=== PATIENT | female | born 1990 | race Caucasian/White ===

== ENCOUNTER 2019-06-07 11:58 | Outpatient (RCR) | payer BC, SELFPAY | END 2019-09-03 23:59 | disposition home or self-care (01) | LOC: ANHLAB 11:58 | PROVIDERS: Visit Provider Obstetrics & Gynecology | DX: O20.0 Threatened abortion (principal); Z3A.00 Weeks of gestation of pregnancy not specified | CPT/HCPCS: 36415; 84702 ==

== ENCOUNTER 2019-06-16 01:27 | Day surgery (SDC) | payer BC, SELFPAY ==
[2019-06-12 13:23] VITALS: BMI 27.4
[2019-06-16 06:20] VITALS: BP 112/52; PULSE 77; RESP 20; TEMP 36.7; O2SAT 100
[2019-06-16] MEDS: LACTATED RINGERS 1,000 ML 30 ML IV CONT (06:35)
[2019-06-16] MEDS: IBUPROFEN IV 800 MG/200 ML 800 MG/200 ML BAG 400 MG IVPB (06:45)
--- NOTE | 2019-06-16 06:55 | WPDANESEPPF ---
Anes - Initial Pre Proc Eval Procedure: Operation Date: 06/16/19 07:30 Proposed Procedures p Suction Dilation And Curettage - Adam Xiao MD Date/Time: 06/16/19 06:55 Surgeon: Adam Xiao MD Pre Op Diagnosis: Missed Ab Patient Data Age: 28 Gender: F Height: 5 ft 2 in Weight: 68.04 kg Allergies Allergy/AdvReac Type Severity Reaction Status Date / Time Penicillins Allergy swelling, Verified 06/12/19 13:31 yeast infection amoxicillin [From Augmentin] AdvReac severe Verified 06/12/19 13:31 yeast infection clavulanic acid AdvReac severe Verified 06/12/19 13:31 [From Augmentin] yeast infection Home Medications Medication Instructions Recorded Confirmed Type No Home Medications 06/12/19 06/12/19 History Patient hx anesthesia problems: none Family hx anesthesia problems: none [facility] Past Medical History Medical History Depression Anes - Eval Final PreProcedure Day of Procedure 06/16/19 06:55 Patient weight: normal Heart: regular rate and rhythm Lungs: clear to auscultation Airway: Mallampati scale class II Neurological: alert and oriented Last oral intake: >/= 8 hours ASA classification: II Emergent: no Anesthetic plan: proceed Anesthesia type and monitoring: general GIVS and standard monitoring Informed Consent: The patient's anesthetic plan and its attendant risks and benefits were discussed with the patient/family/POA. Questions were solicited and answers provided to the satisfaction of the patient/family/POA.
--- NOTE | 2019-06-16 07:35 | WPDHPUPDATE1 ---
History and Physical Update Update Date/Time: 06/16/19 07:35 History and Physical has been reviewed, including an updated exam of the patient. There are NO changes in the patient's condition. Risks, benefits, and alternatives have been discussed and questions answered. Patient agrees to proceed with procedure.
[2019-06-16] MEDS: LIDOCAINE HCL 1% LOCAL INJ 20 ML VIAL INFILTRATE (07:53)
[2019-06-16 08:12] VITALS: BP 94/58; PULSE 83; RESP 16; O2SAT 98
--- NOTE | 2019-06-16 08:23 | PM.OP ---
Procedure Note - Brief Procedure Note - Brief Date of procedure: 06/16/19 Pre-op diagnosis: Missed Ab Post-op diagnosis: same Procedure performed: Suction D&C Description of procedure: The patient was taken the operating room. She was prepped and draped in dorsal lithotomy position after induction mac anesthesia. Speculum placed in vagina. Cervix grasped with a tenaculum. Cervix injected 3 & 9:00 a.m. with lidocaine. The was cervix dilated to 8 mm. A #8 curved suction curette was introduced into uterine cavity. Also proceed uterine cavity or curettage under VAC. A sharp care present reduced after the suction curette was removed. All the surfaces of the uterus were curettaged with a sharp curette. The suction curette was then reintroduced to remove any debris. The procedure was then terminated. The tenaculum was removed. This vacuum was removed. The patient tolerated the procedure well. She is take cover stable condition. Sponge lap needle counts were correct x2. Anesthesia: MAC Surgeon: Adam Xiao MD Estimated blood loss (mL): 50 Drains: No Packing: No Pathology: yes Complications: No immediate complications Condition: stable Disposition: PACU Findings: Normal vulva vagina and cervix, mildly enlarged uterus.
[2019-06-16 08:40] VITALS: BP 96/74; PULSE 98
[2019-06-16 08:55] VITALS: BP 91/55; PULSE 60
== END 2019-06-16 09:03 | disposition home or self-care (01) ==
PROVIDERS: Visit Provider Obstetrics & Gynecology
PROC: (CPT 59820; principal; 2019-06-16 07:30)
DX: O02.1 Missed abortion (principal); F32.9 Major depressive disorder, single episode, unspecified
CPT/HCPCS: 59820; 36415; 88305; A9270; J1741; J2250; J2704; J3010; J7120

== ENCOUNTER 2021-03-11 09:19 | Observation (INO) | payer BC, SELFPAY ==
[2021-03-11 09:40] VITALS: BP 119/62; PULSE 87
[2021-03-11 09:45] VITALS: BP 116/63; PULSE 100
[2021-03-11 09:56] VITALS: BMI 35.6
--- NOTE | 2021-03-11 09:56 | OBADM ---
This patient, Sulma Simon, admitted to the OB room OB Post 115 for observation. Patient/family oriented to hospital policies and general routines including ID bracelet, bed and alarms, visiting hours, pain management, procedures, bathroom and other care routines, personal items, smoking policy, room service/diet, and visiting hours. Patient/Family are encouraged to report perceived risks to care and to ask questions if they do not understand what they are told or what they should do.
[2021-03-11 10:01] VITALS: BP 105/58; PULSE 80
[2021-03-11 10:15] VITALS: BP 113/60; PULSE 82
--- NOTE | 2021-03-30 18:51 | PM.OBTRLD ---
OB - Triage/Final Diagnosis Visit Information Comments/Additional reasons for admission: I have assessed the risk for this patient, Sulma Simon, and determined that she would benefit from observation care. Final Diagnosis (1) Flank pain, acute: Code(s): R10.9 - Unspecified abdominal pain Status: Acute
== END 2021-03-11 10:33 | disposition home or self-care (01) ==
PROVIDERS: Admitting Provider Obstetrics & Gynecology; Visit Provider Obstetrics & Gynecology
DX: O26.893 Other specified pregnancy related conditions, third trimester (principal); R10.9 Unspecified abdominal pain; Z3A.30 30 weeks gestation of pregnancy
CPT/HCPCS: G0378; G0379

== ENCOUNTER 2021-05-11 13:32 | Outpatient (CLI) | payer BC, SELFPAY ==
[2021-05-11 14:00] LABS: Hematocrit 37.4 % (37.0-47.0); Hemoglobin 13.1 g/dL (12.0-15.0); Mean Corpuscular Hemoglobin 33.9 pg (26-34); Mean Corpuscular Volume 96.9 fl (80-100); Mean Platelet Volume 10.6 fl (7.4-10.4); Platelet Count Result 186 k/mm3 (150-375); Red Blood Count 3.86 M/mm3 (4.2-5.4); White Blood Count 10.2 K/mm3 (4.5-10.0)
[2021-05-12 11:22] LABS: Rapid Plasma Reagin Non-Reactive (NonReactive)
== END 2021-05-11 13:33 | disposition home or self-care (01) ==
LOC: ANHOBOP 13:33
PROVIDERS: Visit Provider Obstetrics & Gynecology
DX: Z01.818 Encounter for other preprocedural examination (principal)
CPT/HCPCS: 36415; 85027; 86592; 86850; 86900; 86901

== ENCOUNTER 2021-05-12 06:55 | Inpatient (IN) | payer BC, SELFPAY ==
[2021-05-12] VITALS (38 sets, daily range): BP systolic 88–127; BP diastolic 36–87; PULSE 53–106; RESP 18–20; TEMP 36.3–37.2; O2SAT 93–100; BMI 37.2
--- OUTSIDE RECORDS SUMMARY | 2021-05-12 07:03 | XMS_ITS | Encounter Summary ---
:1990 Author Reason for Visit OB visit Assessment and Plan 1. Routine care 2. Shoulder dystocia - delivered 3. Sterilization requested Discussion Note: None recorded.Patient educational handouts: No information available. Plan of Care Reminders Provider Appointments Surg Post 05/19/2021 Merle Mcclure herese Op 10:00AM MD [facility] Lab None ? ? recorded. Referral None ? ? recorded. Procedures None ? ? recorded. Surgeries None ? ? recorded. Imaging None ? ? recorded. Medications Name Start Date ? ? albuterol sulfate HFA 90 mcg/actuation aerosol inhaler ? ? Slow Release Iron ? Medications Administered None recorded. Vitals Height Weight BMI Blood Pressure 5 ft 2 in 195 lbs 35.7 kg/m2 110/63 mm[Hg] Results Lab Results None recorded. Allergies Code Code System Name Reaction Severity Onset NKDA ? ? ? Problems Name Status Onset Date Source ? Active 10/31/2020 ? 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 Shoulder Dystocia - Delivered Active ? ?
--- OUTSIDE RECORDS SUMMARY | 2021-05-12 07:03 | XMS_ITS | Encounter Summary ---
:1990 Author Reason for Visit OB visit Assessment and Plan 1. Routine care 2. Group B Streptococcus carrier Discussion Note: None recorded.Patient educational handouts: No [...] BMI Blood Pressure 5 ft 2 in 197 lbs 36 kg/m2 114/68 mm[Hg] Results Lab Results None recorded. Allergies Code Code System Name Reaction Severity Onset NKDA ? ? ? Problems Name Status Onset Date Source ? Active 10/31/2020 ? 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 Shoulder Dystocia - Delivered Active ? ? Sterilization Requested Active ? ?
--- OUTSIDE RECORDS SUMMARY | 2021-05-12 07:03 | XMS_ITS | Encounter Summary ---
:1990 Author Reason for Visit OB visit Assessment and Plan Assessment Note Patient is ___weeks . Discu ssed plan. 1. Routine care Discussion Note: None recorded.Patient educational handouts: No information available. Plan of Care Reminders Provider Appointments Surg Post 05/19/2021 Merle anthony Op 10:00AM MD [facility] Lab None ? ? recorded. Referral None ? ? recorded. Procedures None ? ? recorded. Surgeries None ? ? recorded. Imaging None ? ? recorded. Medications Name Start Date ? ? albuterol sulfate HFA 90 mcg/actuation aerosol inhaler ? ? Slow Release Iron ? Medications Administered None recorded. Vitals Height Weight BMI Blood Pressure 5 ft 2 in 189 lbs 34.6 kg/m2 128/73 mm[Hg] Results Lab Results None recorded. Allergies Code Code System Name Reaction Severity Onset NKDA ? ? ? Problems Name Status Onset Date Source ? Active 10/31/2020 ? 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 Shoulder Dystocia - Delivered Active ?
--- OUTSIDE RECORDS SUMMARY | 2021-05-12 07:03 | XMS_ITS | Encounter Summary ---
:1990 Author Reason for Visit OB visit and pre-op Assessment and Plan 1. Shoulder dystocia - delivered 2. Sterilization requested Discussion Note: None recorded.Patient educational [...] BMI Blood Pressure 5 ft 2 in 196 lbs 35.8 kg/m2 118/76 mm[Hg] Results Lab Results None recorded. Allergies Code Code System Name Reaction Severity Onset NKDA ? ? ? Problems Name Status Onset Date Source ? Active 10/31/2020 ? 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 Shoulder Dystocia - Delivered Active ? ? Steriliz
--- OUTSIDE RECORDS SUMMARY | 2021-05-12 07:03 | XMS_ITS ---
:1990 Author Care Team Providers Name Role Phone Merle Thakur Primary Care Provider Unavailable Allergies Code Code System Name Reaction Severity Status Onset NKDA ? Medications Name Status Start Date Stop Date ? ? albuterol sulfate HFA 90 Active ? Not celso ilable mcg/actuation aerosol inhaler amoxicillin 875 mg tablet Completed ? 2020 amoxicillin 875 mg-potassium clavulanate 125 mg tablet Completed ? 03/06/2021 TAKE 1 TABLET BY ORAL ROUTE EVERY 12 HOURS FOR 5 DAYS Flonase Allergy Relief Completed ? fluconazole 150 mg tablet Completed ? 2020 Junel Fe 24 1 mg-20 mcg (24)/75 mg (4) tablet Completed 06/29/2020 TAKE 1 TABLET BY MOUTH EVERY DAY Metrogel Vaginal 0.75 % Completed 04/13/2017 04/06/20 18 insert 1 applicatorful by vaginal route every day at bedtime f or 5 nights Ortho-Cyclen (28) 0.25 mg-35 mcg tablet Completed 04/20/20 16 09/12/2016 take 1 tablet by oral route every day penicillin V potassium 500 mg tablet Completed ? 03/06/2021 TAKE 1 TABLET BY MOUTH TWICE A DAY FOR 10 DAYS prednisone 20 mg tablet Completed ? 03/06/20 21 TAKE 3 TABLETS BY MOUTH ONCE DAILY FOR 5 DAYS Active ? Not available Slow Release Iron Active ? Not available triamcinolone acetonide 0.1 % topical cream Completed ? 03/06/2021 APPLY TO AFFECTED AREA TWICE A DAY Valtrex 1 gram tablet Completed ? 09/18/2014 take 1 tablet by oral route every day Zoloft 50 mg tablet Completed 03/15/2013 04/26/2014
--- OUTSIDE RECORDS SUMMARY | 2021-05-12 07:03 | XMS_ITS | Encounter Summary ---
:1990 Author Reason for Visit OB visit Assessment and Plan 1. Shoulder dystocia - delivered ? section (SURG) 2. Routine care Discussion Note: None recorded.Patient educational handouts: No information available. Plan of Care Reminders Provider Appointments Surg Post Op Am y C[place] 05/19/2021 MD [facility] 10:00AM Lab None ? ? recorded. Referral None ? ? recorded. Procedures None ? ? recorded. Surgeries [facility] (SURG) 05/12/2021 [facility] Imaging None ? ? recorded. Medications Name Start Date ? ? albuterol sulfate HFA 90 mcg/actuation aerosol inhaler ? ? Slow Release Iron ? Medications Administered None recorded. Vitals Height Weight BMI Blood Pressure 5 ft 2 in 190 lbs 34.8 kg/m2 109/67 mm[Hg] Results Lab Results None recorded. Allergies Code Code System Name Reaction Severity Onset NKDA ? ? ? Problems Name Status Onset Date Source ? Active 10/31/2020 ?
--- OUTSIDE RECORDS SUMMARY | 2021-05-12 07:03 | XMS_ITS | Encounter Summary ---
[...] ft 2 in 195 lbs 35.7 kg/m2 113/73 mm[Hg] Results Lab Results None recorded. Allergies Code Code System Name Reaction Severity Onset NKDA ? ? ? Problems Name Status Onset Date Source ? Active 10/31/2020 ? 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 Shoulder Dystocia - Delivered Active ? ? Sterilization Requested Active ? ?
--- OUTSIDE RECORDS SUMMARY | 2021-05-12 07:03 | XMS_ITS | Encounter Summary ---
:1990 Author Reason for Visit OB visit 28WKS / GLUCOSE TODAY Assessment and Plan Assessment Note Patient is [...] BMI Blood Pressure 5 ft 2 in 185 lbs 33.8 kg/m2 113/66 mm[Hg] Results Lab Results None recorded. Allergies Code Code System Name Reaction Severity Onset NKDA ? ? ? Problems Name Status Onset Date Source ? Active 10/31/2020 ? 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
--- OUTSIDE RECORDS SUMMARY | 2021-05-12 07:03 | XMS_ITS | Encounter Summary ---
:1990 Author Reason for Visit None recorded. Assessment and Plan 1. Medical examination for suspe cted condition ? US, obstetric, follow-up Discussion Note: None recorded.Patient educational handouts: No information available. Plan of Care Reminders Provider Appointments Surg Post 05/19/2021 Merle Thakur, [place] 10:00AM Lab None ? ? recorded. Referral None ? ? recorded. Procedures None ? ? recorded. Surgeries None ? ? recorded. Imaging US, 03/19/2021 [place] [facility], Follow-up Medications Name Start Date ? ? albuterol sulfate HFA 90 mcg/actuation aerosol inhaler ? ? Slow Release Iron ? Medications Administered None recorded. Vitals None recorded. Results Lab Results None recorded. Allergies Code Code System Name Reaction Severity Onset NKDA ? ? ? Problems Name Status Onset Date Source ? Active 10/31/2020 ? 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 Shoulder Dystocia - Delivered Active ? ? Sterilization Requested Active ? ? Procedures Date
--- OUTSIDE RECORDS SUMMARY | 2021-05-12 07:03 | XMS_ITS | Encounter Summary ---
:1990 Author Reason for Visit None recorded. Assessment and Plan 1. Large for gestation age fetus ? US, obstetric, follow-up Discussion Note: None recorded.Patient educational handouts: No information available. Plan of Care Reminders Provider Appointments Surg Post 05/19/2021 Merle Thakur, [place] 10:00AM Lab None ? ? recorded. Referral None ? ? recorded. Procedures None ? ? recorded. Surgeries None ? ? recorded. Imaging US, 04/16/2021 [place] [facility], Follow-up Medications Name Start Date ? [...] Sterilization Requested Active ? ? Procedures Date Name
--- NOTE | 2021-05-12 07:20 | LDADM ---
This patient, Sulma Simon, was admitted to Labor/Delivery/Recovery 119 on 05/12/21 at 06:55. Plans for labor, pain management and were discussed with patient. Patient/family oriented to hospital policies and general routines including ID bracelet, bed and alarms, visiting hours, pain management, procedures, bathroom and other care routines, personal items, smoking policy, room service/diet and guest tray routines, infant security routines, and visiting hours. Patient/Family are encouraged to report perceived risks to care and to ask questions if they do not understand what they are told or what they should do. See OBIX for further documentation.
[2021-05-12] MEDS: LACTATED RINGERS 1,000 ML 125 ML IV CONT (07:45)
--- NOTE | 2021-05-12 07:51 | WPDANESEPPF ---
Anes - Initial Pre Proc Eval Procedure: Operation Date: 05/12/21 09:00 Proposed Procedures p Section with Bilateral Salpingectomy - Merle Thakur MD Date/Time: 05/12/21 07:51 Surgeon: Merle Thakur MD Pre Op Diagnosis: Section,sterilization Patient Data Age: 30 Gender: F Height: 1.55 m Weight: 89.3 kg Last Vital Signs Temp 36.9 C 05/12/21 07:47 Pulse 84 05/12/21 07:48 Resp 18 05/12/21 07:47 BP 105/64 05/12/21 07:48 Allergies Allergy/AdvReac Type Severity Reaction Status Date / Time acetaminophen [From Tylenol] Allergy Intermediate Blister Verified 05/12/21 07:48 amoxicillin [From Augmentin] AdvReac severe Verified 04/16/21 15:00 yeast infection clavulanic acid AdvReac severe Verified 04/16/21 15:00 [From Augmentin] yeast infection Home Medications Medication Instructions Recorded Confirmed Type PNV cmb#95-ferrous fumarate-FA 1 tablet PO DAILY 04/16/21 04/16/21 History [] ferrous sulfate [Iron (ferrous 325 mg PO BID 04/16/21 04/16/21 History sulfate)] Patient hx anesthesia problems: none Family hx anesthesia problems: none Results Review: All pre-operative results and documents have been reviewed as part of the pre-operative evaluation. FORMERLY [facility] Past Medical History Medical History (Updated 05/12/21 @ 07:52 by Varghese Bain MD) Depression Obesity Surgical History Surgical History (Updated 05/12/21 @ 07:52 by Varghese Bain MD) History of D&C Family History Family History (Updated 04/16/21 @ 14:33 by Anne Tobar RN) Father Hypertension High cholesterol Mother Hypertension Cerebrovascular accident High cholesterol Social History Social History Smoking packs per day: 0.5 Smoking cigarettes per day: 10.0 Years smoked: 15 Smoking pack-years: 7.50 Smoking status: Current every day smoker Tobacco type: cigarettes Second hand tobacco smoke exposure: No Substance use: never Spiritual care concerns: No Anes - Eval Final PreProcedure Day of Procedure 05/12/21 07:51 Patient weight: obese Heart: regular rate and rhythm Lungs: clear to auscultation Airway: Mallampati scale class II Neurological: alert and oriented Last oral intake: >/= 8 hours ASA classification: II Emergent: no Anesthetic plan: proceed Anesthesia type and monitoring: regional spinal and standard monitoring Results Review: All pre-operative results and documents have been reviewed as part of the pre-operative evaluation. Informed Consent: The patient's anesthetic plan and its attendant risks and benefits were discussed with the patient/family/POA. Questions were solicited and answers provided to the satisfaction of the patient/family/POA.
--- NOTE | 2021-05-12 08:48 | PM.IMHP ---
H&P: HPI History of Present Illness Date/Time: 05/12/21 08:48 Chief Complaint: primary CS Narrative: Sulma is a at 39.4 for primary CS for history of shoulder dystocia last . This growth 71% but AC 96%. Had previa that resolved. GBS pos. Also wants salpingectomy for sterilization. Review of Systems Review of Systems: All systems reviewed & are unremarkable except as noted in HPI and below PMFSH Past Medical History Medical History (Updated 05/12/21 @ 08:50 by Merle Thakur MD) Depression Obesity Surgical History Surgical History (Updated 05/12/21 @ 07:52 by Varghese Bain MD) History of D&C Family History Family History (Updated 04/16/21 @ 14:33 by Anne Tobar RN) Father Hypertension High cholesterol Mother Hypertension Cerebrovascular accident High cholesterol Social History Social History Smoking packs per day: 0.5 Smoking cigarettes per day: 10.0 Years smoked: 15 Smoking pack-years: 7.50 Smoking status: Current every day smoker Tobacco type: cigarettes Second hand tobacco smoke exposure: No Substance use: never Spiritual care concerns: No Meds Home Medications and Allergies Home Medications Medication Instructions Recorded Confirmed Type PNV cmb#95-ferrous fumarate-FA 1 tablet PO DAILY 04/16/21 04/16/21 History [] ferrous sulfate [Iron (ferrous 325 mg PO BID 04/16/21 04/16/21 History sulfate)] Allergies Allergy/AdvReac Type Severity Reaction Status Date / Time acetaminophen [From Tylenol] Allergy Intermediate Blister Verified 05/12/21 07:48 amoxicillin [From Augmentin] AdvReac severe Verified 04/16/21 15:00 yeast infection clavulanic acid AdvReac severe Verified 04/16/21 15:00 [From Augmentin] yeast infection Vital Signs Vital Signs - 24 hr 05/12/21 07:47 05/12/21 07:48 05/12/21 08:00 Temperature 98.4 F Pulse Rate 84 86 Respiratory Rate 18 Blood Pressure 105/64 113/59 L 05/12/21 08:15 05/12/21 08:30 05/12/21 08:45 Temperature Pulse Rate 79 75 63 Respiratory Rate Blood Pressure 104/66 104/66 118/87 Exam Const: General: no acute distress Resp: Effort & Inspection: normal respiratory effort Auscultation: clear to auscultation bilaterally Cardio: Rate: regular rate Rhythm: regular rhythm GI: GI Palp: Yes Soft to palpation Extrem: General: normal to inspection Assessment and Plan Assessment and plan (1) History of shoulder dystocia in prior , currently : Code(s): O09.299 - Supervision of with other poor reproductive or obstetric history, unspecified trimester Status: Acute (2) Request for sterilization: Code(s): Z30.2 - Encounter for sterilization Status: Acute Additional Plan Plan primary CS due to history of shoulder dystocia Discussed RBA, pt consented, all questions answered. desires bilateral salpingectomy for sterilization, is 100% certain. will proceed.
--- NOTE | 2021-05-12 08:51 | WPDHPUPDATE1 ---
History and Physical Update Update Date/Time: 05/12/21 08:51 History and Physical has been reviewed, including an updated exam of the patient. There are NO changes in the patient's condition. Risks, benefits, and alternatives have been discussed and questions answered. Patient agrees to proceed with procedure.
--- NOTE | 2021-05-12 10:09 | PM.OBPRVD ---
OB - Delivery Note Procedure Delivery date: 05/12/21 Procedure: Procedures Operation Date: 05/12/21 09:00 <No data on this case meets the specified criteria> Primary low transverse section and bilateral salpingectomy Route of delivery: Specimen: Yes (placenta) Quantitative Blood Loss (ml): 495 Anesthesia type: Spinal Disposition: floor Complications: none Narrative: The patient was taken to the OR and received spinal anesthesia. She was placed in dorsal supine position with left lateral tilt. SCDs and garcia were placed. She was prepped and draped in the normal sterile fashion. A Pfannensteil skin incision was made and carried through to the underlying layer of fascia. The fascia was incised in the midline and then extended laterally using Sotelo scissors. The muscles were in the midline and the peritoneum was entered bluntly. The peritoneal incision was extended inferiorly and superiorly with care to avoid the bladder. The bladder blade was then inserted, the vesicouterine peritoneum was grasped, incised with Metzenbaum scissors, and a bladder flap created. The bladder blade was reinserted. A low transverse uterine incision was made with a scalpel and extended bluntly. AROM was performed and fluid was noted to be clear. The head was delivered, followed by the remainder of the baby. The baby's oropharynx was suctioned. After 30 seconds, the cord was clamped and cut and the was handed off. Cord blood was obtained and the placenta was then removed manually. The uterus was exteriorized. A moist lap sponge was used to curette the endometrium. The uterine incision was then closed with two layers of 0-Vicryl in a running, locking fashion. Good hemostasis was noted. I then turned attention to the tubes. Using the Ligasure, the right tube was removed by sequentially clamping, cauterizing, and cutting the tube free from the cornua and the broad ligament. Similarly, the left tube was removed. The posterior cul de sac was irrigated with normal saline and cleared of all clot and debris. The uterus was returned to the abdomen. Both lateral gutters were then irrigated. The rectus muscles were inspected and found to be hemostatic. The fascia was reapproximated using 0-Vicryl in running fashion. The subcutaneous tissue was irrigated with normal saline and made hemostatic with Bovie electrocautery. The skin was then closed with 4-0 vicryl. Steri strips and a bandage were applied. The uterus was evacuated. The patient tolerated the procedure very well. All counts were correct. She was taken to the recovery room in good condition. Baby Date of : 05/12/21 Time of : 09:30 Weeks of gestation at delivery: 39 gender: Female Weight (pounds): 7 Weight (ounces): 3 presentation: vertex Placenta delivery description: Manual Removal cord vessel description: 3 Vessels, Nuchal Cord (x2) and Delayed Cord Clamping score one minute: 8 score five minutes: 9
[2021-05-12] MEDS: KETOROLAC 30 MG/ML VIAL (*BKC) IV PUSH ×3 (10:15→23:42)
[2021-05-12] MEDS: OXYTOCIN 30 UNITS/NS 500 ML 30 UNITS/500 ML BAG 125 UNITS IV CONT (12:20)
--- NOTE | 2021-05-12 12:42 | PC.NURSE ---
Patient transferred to post room # 281 per stretcher. Support person present. Oriented to unit, room, information board, rooming in, admission packet and security measures. Patient verbalizes understanding.
--- NOTE | 2021-05-12 13:15 | PC.NURSE ---
Mother to 2nd floor, RN called out to assist mother with feeding. Mother reports eagerly fed first feeding without difficulties or discomfort. Mother reports 1st child now 8 yrs old for a few weeks is able to freely thrust tongue past gum ridge and flange both lips. Skin is intact on both nipples, no redness and bruising noted. Reviewed infant feeding cues, frequencies, duration of feedings, feeding elimination flow sheet, and signs of adequate intake. Demonstrated stimulation techniques to wake for feeding. Assisted with to breast. Reviewed positioning/alignment in cross cradle, holding breast in ?U? hold and guided asymmetrical latch on. Reviewed rational for each. Infant able to latch correctly within a few attempts. Infant nursed eagerly with steady draws and occasional swallowing noted, some pausing noted. Reviewed signs of a correct latch, effective nursing and suck swallow ratio. Suggested mother stimulate while feeding to increase stimulation for milk supply, for increased intake and to assist with maintaining deep latch. Infant would slip to shallow latch causing tenderness. Demonstrated how to adjust latch more deeply while feeding as needed. Mother reports she can feel the difference in latch with no tenderness. Nipple care reviewed of lanolin after feedings, warm compresses as needed. Instructed mother to call out for RN assistance if she is unable to latch for feeding or she has discomfort with nursing. Instructed feeding should be initiated three hours from start of last feeding or if feeding cues are noted before. Mother voiced understanding of information shared.
[2021-05-12] MEDS: oxyCODONE HCL (*CRX) 5 MG TAB IR PO (13:44)
[2021-05-12] MEDS: diphenhydrAMINE HCl INJ 50 MG/ML VIAL 25 MG IV PUSH (14:34)
[2021-05-12] MEDS: DEXTROSE 5%/0.45% SOD CHL 1,000 ML 125 ML IV CONT (17:08)
[2021-05-12] MEDS: DOCUSATE SODIUM 100 MG CAPSULE PO (17:10)
[2021-05-12] MEDS: SIMETHICONE 80 MG TAB.CHEW PO (17:10)
[2021-05-13 04:45] VITALS: BP 109/54; PULSE 74; RESP 18; TEMP 37; O2SAT 97
[2021-05-13 05:04] LABS: Basophils Percent Auto 0.2 % (0.2-1.2); Hematocrit 32.5 % (37.0-47.0); Hemoglobin 11.3 g/dL (12.0-15.0); Immature Granulocyte Absolute 0.08 K/mm3 (0.00-0.031); Immature Granulocyte Percent A 0.6 % (0-0.5); Lymphocytes Absolute Auto 2.03 K/mm3 (0.9-3.2); Lymphocytes Percent Auto 16.2 % (18.3-44.2); Mean Corpuscular HGB Conc 34.8 g/dl (32-36); Mean Corpuscular Volume 97.9 fl (80-100); Mean Platelet Volume 10.9 fl (7.4-10.4); Monocytes Absolute Auto 0.6 K/mm3 (0.1-0.6); Monocytes Percent Auto 4.7 % (2.6-8.5); Neutrophils Absolute Auto 9.8 K/mm3 (1.3-6.7); Neutrophils Percent Auto 78.3 % (45.5-73.1); Platelet Count Result 157 k/mm3 (150-375); Red Blood Count 3.32 M/mm3 (4.2-5.4); White Blood Count 12.5 K/mm3 (4.5-10.0)
--- NOTE | 2021-05-13 07:19 | P.PNOB_ITS ---
OB - PN: Subj Subjective Date/time seen: 05/13/21 07:19 Patient comments: no complaints and pain well controlled baby status: nursing well [place] feeding status: exclusively breast feeding Narrative: POD 1 from primary CS. Doing well. Normal lochia. Eating, ambulating, garcia out. OB - PN: Obj Data Labs CBC & Chem 7: 05/13/21 04:41 Labs: Laboratory Results - last 24 hr 05/13/21 04:41 WBC 12.5 H RBC 3.32 L Hgb 11.3 L Hct 32.5 L MCV 97.9 MCH 34.0 MCHC 34.8 RDW 13.0 Plt Count 157 MPV 10.9 H Immature Gran % (Auto) 0.6 H Neut % (Auto) 78.3 H Lymph % (Auto) 16.2 L Haakon % (Auto) 4.7 Eos % (Auto) 0.0 Baso % (Auto) 0.2 Lymph # (Auto) 2.03 Haakon # (Auto) 0.6 Eos # (Auto) 0.0 Baso # (Auto) 0.0 Abs Immat Gran (auto) 0.08 H Absolute Neuts (auto) 9.8 H Absolute Nucleated RBC 0.0 Nucleated RBC % 0.0 OB - PN A/P Assessment and Plan (1) delivery delivered: Code(s): O82 - Encounter for delivery without indication Status: Acute Plan day: 1 Plan: routine care Time Spent With Patient Time: Total time spent is greater than 50% in coordination of care (as documented) at patient's floor/unit and/or counseling patient: Exam Narrative: NAD abdomen soft, appropriately tender, incision bandaged Extremities nontender with 1+ edema
--- NOTE | 2021-05-13 07:45 | PC.NURSE ---
Consult with pt., mother reports is eagerly feeding with slight tenderness to left nipple from a blister. Mother reports a blister began last evening, mother had assist during the night and feels she was not positioning infant correctly and now feels less discomfort.. Reviewed infant feeding cues, frequencies, duration of feedings, feeding elimination flow sheet, and signs of adequate intake. Demonstrated stimulation techniques to wake infant for feeding. Reviewed signs of a correct latch, effective nursing and suck swallow ratio. Nipple care reviewed of lanolin after feedings and warm compresses as needed. Requested mother to call out for RN/LC assistance next feeding to assess latch due reported nipple tenderness. Instructed feeding should be initiated three hours from start of last feeding or if feeding cues are noted before. Mother voiced understanding of information shared.
[2021-05-13 08:00] VITALS: BP 109/56; PULSE 64; RESP 18; TEMP 36.5; O2SAT 98
[2021-05-13] MEDS: oxyCODONE HCL (*CRX) 5 MG TAB IR PO ×3 (08:10→20:02)
[2021-05-13] MEDS: DOCUSATE SODIUM 100 MG CAPSULE PO (08:10)
[2021-05-13] MEDS: MULTIVIT/MIN/PREN/FOL AC/IRON TABLET 1 TAB PO (08:10)
[2021-05-13] MEDS: IBUPROFEN 600 MG TABLET PO ×3 (08:10→20:02)
--- NOTE | 2021-05-13 12:45 | WPDANLDPN2 ---
Anes-Prog Note L&D Date/Time: 05/13/21 12:45 Comfortable throughout: section Neuraxial method: spinal Epidural/Spinal procedure site: clean & non-tender Neuro status: Neuro function grossly intact. Cardiovascular status: normal Respiratory status: normal Airway patency: baseline Mental status: baseline Post-Op hydration status: normal Vital Signs: Last Vital Signs Temp 97.7 F 05/13/21 08:00 Pulse 64 05/13/21 08:00 Resp 18 05/13/21 08:00 BP 109/56 L 05/13/21 08:00 Pulse Ox 98 05/13/21 08:00 Pain score (VAS): 0 I/O: Intake & Output 05/12/21 05/13/21 05/13/21 23:59 07:59 15:59 Intake Total 2100 800 Output Total 1150 1650 Balance 950 -850 Post-procedural complaints: pruritis severe, treatment refractory Patient feedback: Patient satisfied with anesthetic care.
--- NOTE | 2021-05-13 12:46 | WPDANLDNPN2 ---
Anes-Prog Note L&D-Neuraxial Date/Time: 05/13/21 12:46 Neuraxial medications: intrathecal PF morphine Opiod-related complaints: pruritis severe, treatment refractory Patient feedback: Patient satisfied with post-operative pain management.
--- NOTE | 2021-05-13 14:45 | PC.NURSE ---
Consult with pt., mother reports she just completed a feeding and did not call out. Mother reports less tenderness with feeding.
[2021-05-13 20:00] VITALS: BP 97/67; PULSE 68; RESP 18; TEMP 36.2; O2SAT 99
[2021-05-14] MEDS: oxyCODONE HCL (*CRX) 5 MG TAB IR PO ×4 (01:18→19:40)
[2021-05-14] MEDS: IBUPROFEN 600 MG TABLET PO ×4 (02:05→19:39)
--- NOTE | 2021-05-14 07:34 | P.PNOB_ITS ---
OB - PN: Subj Subjective Date/time seen: 05/14/21 07:34 Patient comments: incisional pain, tolerating diet and flatus present [place] baby status: doing well OB - PN: Obj Data Labs CBC & Chem 7: 05/13/21 04:41 OB - PN A/P Assessment and Plan (1) delivery delivered: Code(s): O82 - Encounter for delivery without indication Status: Acute (2) Request for sterilization: Code(s): Z30.2 - Encounter for sterilization Status: Acute (3) History of shoulder dystocia in prior , currently : Code(s): O09.299 - Supervision of with other poor reproductive or obstetric history, unspecified trimester Status: Acute Plan day: 2 Plan: routine care Time Spent With Patient Time: Total time spent is greater than 50% in coordination of care (as docu mented) at patient's floor/unit and/or counseling patient: Exam Narrative: NAD abdomen soft, appropriately tender, incision CDI Extremities nontender with 1+ edema
[2021-05-14 07:45] VITALS: BP 114/67; PULSE 68; RESP 16; TEMP 36.2; O2SAT 99
[2021-05-14] MEDS: MULTIVIT/MIN/PREN/FOL AC/IRON TABLET 1 TAB PO (07:54)
--- NOTE | 2021-05-14 11:30 | PC.NURSE ---
Mother called out for observation of latch. Mother put to breast in cross cradle with correct positioning/alignment, holding breast in ?U? hold and guided asymmetrical latch on. able to latch correctly with first attempt. Infant nursed eagerly with steady draws and frequent swallowing noted, some pausing noted. Reviewed signs of a correct latch, effective nursing and suck swallow ratio. Suggested mother stimulate while feeding to increase stimulation for milk supply, for increased intake and to assist with maintaining deep latch. was able to maintain latch without discomfort to mother. I Demonstrated how to adjust latch more deeply while feeding as needed. Nipple care reviewed of lanolin after feedings, warm compresses as needed. Mother states she feels her milk is transitioning in. Reviewed to soften before latching if needed, with massage and self expression. Instructed mother to call out for RN assistance if she is unable to latch for feeding or she has discomfort with nursing. Instructed feeding should be initiated three hours from start of last feeding or if feeding cues are noted before. Mother voiced understanding of information shared.
[2021-05-14 19:45] VITALS: BP 120/58; PULSE 72; RESP 18; TEMP 36.7; O2SAT 100
[2021-05-15] MEDS: IBUPROFEN 600 MG TABLET PO ×2 (02:39→08:43)
[2021-05-15] MEDS: oxyCODONE HCL (*CRX) 5 MG TAB IR PO ×2 (02:40→08:44)
[2021-05-15 07:55] VITALS: BP 122/68; PULSE 82; RESP 18; TEMP 36.8; O2SAT 97
[2021-05-15 08:00] VITALS: PULSE 72; RESP 18; O2SAT 100
--- NOTE | 2021-05-15 08:05 | PM.OBPNVD ---
OB - PN: Subj Subjective Date/time seen: 05/15/21 08:05 Patient comments: no complaints, pain well controlled, tolerating diet and flatus present baby status: doing well OB - PN: Obj Data Labs CBC & Chem 7: 05/13/21 04:41 OB - PN A/P Plan day: 2 Plan: routine care and discharge home (Follow up in 1 week) Time Spent With Patient Time: Total time spent is greater than 50% in coordination of care (as documented) at patient's floor/unit and/or counseling patient: Time with patient: less than 15 minutes Review of Systems Review of Systems: All systems reviewed & are unremarkable except as noted in HPI and below Exam Narrative: Fundus firm. Vaginal flow controlled. Incision dry and intact. Negative homans. No redness, warmth, or pain of lower ext. Const: General: comfortable Chest: Breast/axilla inspection: normal inspection of the breasts Resp: Effort & Inspection: normal respiratory effort Auscultation: clear to auscultation bilaterally Cardio: Rate: regular rate GI: GI Palp: Yes Soft to palpation Psych: Appearance: grossly normal Affect: normal affect Attitude: cooperative Thought content: Yes Normal thought content present Judgement: Good judgement present (Psych)
--- NOTE | 2021-05-15 08:40 | PC.NURSE ---
Consult with pt., observed mother is able to independently latch with appropriate positioning/alignment. Infant eagerly latches on first attempt with long rhythmical draws and frequent swallowing noted. She denies any nipple discomfort, is feeding as required and waking infant to feed if needed. Infant has had at least 8 effective feedings in the past 24 hours, and is currently meeting outcomes for weight, output, jaundice and feeding frequencies. Mother states she feels confident to continue effective at home. Reviewed transition to breast milk, signs of adequate intake, and engorgement/relief. Instructed to call ICP if intake/output less than required. Reviewed regular medications mother is taking. Information provided per Dea. Reviewed community resources on the [facility] website and in the Mom/Baby guide. Information on outpatient services provided. Mother has no further questions at this time. Instructed feeding should be initiated three hours from start of last feeding or if feeding cues are noted before until seen by ICP. Mother voiced understanding of information shared.
--- NOTE | 2021-05-15 08:41 | PC.NURSE ---
Patient was given the opportunity to view the discharge video Mother & Baby Care, The First Two Weeks and to ask questions. Patient declined viewing the video and has been given the mother/baby guide for home reference.
[2021-05-15] MEDS: MULTIVIT/MIN/PREN/FOL AC/IRON TABLET 1 TAB PO (08:42)
[2021-05-15] MEDS: DOCUSATE SODIUM 100 MG CAPSULE PO (08:42)
[2021-05-16 09:22] VITALS: BP 110/67; PULSE 74; RESP 20; TEMP 37.1; O2SAT 99
--- NOTE | 2021-05-16 09:23 | PM.OBDSVD ---
DS: Admitting Diagnosis Discharge Date 05/15/21 Admitting Diagnosis term IUP, history of shoulder dystocia DS: Discharge Diagnosis Discharge Diagnosis (1) delivery delivered: Code(s): O82 - Encounter for delivery without indication Status: Acute OB - DS: Summary Hospital Course Hospital Course: Sulma was admitted for primary section for history of shoulder dystocia. Her delivery and course were uncomplicated. OB Procedures : Ultrasound OB Procedures Intrapartum: OB Procedures: : None Peripartum Data Delivery Method: Section Procedures: Procedures Operation Date: 05/12/21 09:00 Actual Procedure Side Surgeon p Section Bilateral Merle Thakur MD complications: none Time Spent with Patient Time attestation: Total time spent providing and/or coordinating discharge services: DS: Data Data Completed and Pending Completed studies during hospitalization: Pending at discharge 05/12/21 10:36 Surgical [PTH] Routine Discharge Plan Discharge Attending physician on discharge: Merle Thakur Discharging Clinician: Merle Thakur Anticipated Discharge Date/Time: 05/15/21 07:35 Patient Disposition: Home, Self-Care Activity: may shower, may drive after 2 weeks and pelvic rest Diet: regular Discharge Instructions: Education: Mom and Baby Guide Given to: Mother Follow-Up: Call your delivering provider's office for an appointment to be seen in: 1 Week Mom and baby should come to the [facility] for the follow-up appointment. Appointment Date/Time: Sunday, May 16, 2021 at 9:00 a.m. What to expect at your follow-up visit: Blood Pressure Check Physical Assessment Call [phone] if you are unable to keep your appointment time. BREAST CARE: * Wear a snug supportive bra. * For engorgement discomfort: Breast Feeding: * Apply warm moist washcloths * Express milk as needed to relieve engorgement * Wear loose clothing Bottle Feeding: * May apply ice packs * For sore nipples: * Identify correct latch-on * Apply warm moist washcloths before and after nursing * Air dry nipples after nursing * May apply Lansinoh cream to nipples ABDOMINAL INCISION: (if applicable) * Allow incision to air dry * Do NOT use lotions for powders on your incision * When showering, allow soap and water to run over the incision, but do not wash incision EPISIOTOMY/PERINEAL CARE: * Change your pad frequently throughout the day * You may take sitz baths several times a day (fill your bathtub with warm water and soak for 20 minutes.) Do NOT bathe in the water * No tub baths until seen by your physician - You may shower ACTIVITY: * Rest as much as possible. * Do not exercise or lift anything heavier than your baby (such as laundry or other children.) * Avoid stairs or driving as much as possible. * Do not put anything into the vagina. No douching, tampons, or sexual activity until seen by physician. NOTIFY PHYSICIAN IF YOU HAVE ANY QUESTIONS OR IF ANY OF THE FOLLOWING SYMPTOMS OCCUR: * If your incision becomes red, swollen, or more painful than what you have experienced in the hospital. * If your vaginal bleeding becomes foul smelling. * If your vaginal bleeding becomes more heavy than a period or if your bleeding changes from pink to bright red. However, you may pass an occasional walnut-sized clot once or twice for the first week . * If you experience a sharp, shooting pain in you calves. * If you discover a hard, reddened area on your breast or if you experience flu-like symptoms. DIET: * Eat regular, well-balanced meals. * Drink plenty of fluids daily. If , drink to thirst. Patient Instructions: How to Stop Smoking (DC) Stand Alone Forms: [employer]
== END 2021-05-15 10:30 | disposition home or self-care (01) | DRG 785 ==
LOC: ANHLDR 07:01 → ANHOB2 13:25
PROVIDERS: Admitting Provider Obstetrics & Gynecology; Visit Provider Obstetrics & Gynecology
PROC: 10D00Z1 Extraction of Products of Conception, Low, Open Approach (ICD-10-PCS; CPT 59514; principal; 2021-05-12 09:00)
DX: O99.892 Other specified diseases and conditions complicating childbirth (principal); Z37.0 Single live birth; Z3A.39 39 weeks gestation of pregnancy; Z87.59 Personal history of other complications of pregnancy, childbirth and the puerperium; O99.824 Streptococcus B carrier state complicating childbirth; O69.81X0 Labor and delivery complicated by cord around neck, without compression, not applicable or unspecified; Z30.2 Encounter for sterilization
CPT/HCPCS: 36415; 85025; 88302; A9270; J1200; J1885; J2274; J2370; J2405; J2590; J7120

== ENCOUNTER 2023-12-28 09:37 | Outpatient (CLI) | payer BC, SELFPAY ==
--- NOTE | ~2023-12-28 | MMUS_ITS ---
EXAMINATION: MM diagnostic rachael BI w addi, US breast BI complete HISTORY: Palpable left breast lump TECHNIQUE: Additional 3-D tomosynthesis images of the breasts were performed and synthetic 2-D images were generated. CAD analysis was submitted and interpreted. High resolution bilateral complete breas t ultrasound was performed. COMPARISON: None BREAST PARENCHYMAL COMPOSITION: Dense: The breasts are extremely dense, which lowers the sensitivity of mammography. FINDINGS: MAMMOGRAPHIC FINDINGS: The breasts are symmetric. There are no suspicious masses, calcifications or architectural distortion in either breast to suggest malignancy. ULTRASOUND: Complete US of all 4 quadrants of the breast/s and retroareolar region was reviewed. Right breast: At 9:00, 9 cm from the nipple there is an oval hypoechoic mass with no significant internal vascularity . Mixed posterior attenuation. This mass measures 3 mm. Left breast: Normal heterogeneous echotexture without focal solid or cystic mass. IMPRESSION: 1. Probable benign 3 mm right breast mass at 9:00, 9 cm from the nipple.. No evidence for malignancy in the left breast. 2. Recommend 6 month follow-up Limited right breast ultrasound BI-RADS category 3, probably benign findings. Reviewed, dictated and finalized at location B. IMPRESSION: 1. Probable benign 3 mm right breast mass at 9:00, 9 cm from the nipple.. No ev idence for malignancy in the left breast. 2. Recommend 6 month follow-up Limited right breast ultrasound BI-RADS category 3, probably benign findings.
== END 2023-12-28 09:38 ==
PROVIDERS: PCP Nurse Practitioner; Visit Provider Nurse Practitioner
DX: N63.10 Unspecified lump in the right breast, unspecified quadrant (principal); R92.8 Other abnormal and inconclusive findings on diagnostic imaging of breast
CPT/HCPCS: 76641; 77062; 77066; G0279

== ENCOUNTER 2024-03-02 09:39 | Emergency (ER) | payer BC, SELFPAY ==
--- NOTE | ~2024-03-02 | CT_ITS ---
Non-contrast CT scan of the Abdomen and Pelvis Clinical indication: Left flank pain Technique: 2.5 mm axial scans were obtained through the abdomen and pelvis without intravenous or or al contrast. Dose reduction technique was used on this scan by utilizing automated exposure control a nd iterative reconstruction technique. The dose-length product (DLP) was 580.38 mGy-cm. Findings: Images through the lung bases reveal no abnormalities. There is no evidence of renal or ureteral calculi. The kidneys and the ureters are nondilated. The liver, spleen, pancreas, gallbladder, and adrenals appear normal. There is no aortic aneurysm. There is no evidence of bowel obstruction. Images through the pelvis were performed. There is no evidence of ascites or lymphadenopathy. Urinary bladder unremarkable. No pelvic mass seen. No ascites. Impression: No significant abnormality seen. Reviewed, dictated and finalized at [facility]. Impression: No significant abnormality seen.
[2024-03-02 09:42] VITALS: BP 122/82; PULSE 75; RESP 14; TEMP 36.2; O2SAT 100
[2024-03-02 10:15] VITALS: BP 104/64; PULSE 70; RESP 18; O2SAT 98
[2024-03-02 10:17] LABS: Basophils Percent Auto 0.2 % (0.2-1.2); Eosinophils Percent Auto 0.1 % (0-4.4); Hematocrit 40.1 % (37.0-47.0); Hemoglobin 13.2 g/dL (12.0-15.0); Immature Granulocyte Absolute 0.01 K/mm3 (0.00-0.031); Immature Granulocyte Percent A 0.1 % (0-0.5); Lymphocytes Absolute Auto 2.28 K/mm3 (0.9-3.2); Lymphocytes Percent Auto 24.7 % (18.3-44.2); Mean Corpuscular HGB Conc 32.9 g/dl (32-36); Mean Corpuscular Hemoglobin 31.3 pg (26-34); Mean Platelet Volume 11.1 fl (7.4-10.4); Monocytes Absolute Auto 0.4 K/mm3 (0.1-0.6); Monocytes Percent Auto 4.4 % (2.6-8.5); Neutrophils Absolute Auto 6.5 K/mm3 (1.3-6.7); Neutrophils Percent Auto 70.5 % (45.5-73.1); Platelet Count Result 250 k/mm3 (150-375); Red Blood Count 4.22 M/mm3 (4.2-5.4); Red Cell Distribution Width 11.7 % (11.5-14.5); White Blood Count 9.2 K/mm3 (4.5-10.0)
[2024-03-02 10:24] LABS: Add Urine Microscopic? YES; Appearance Urine Clear (Clear); Bacteria Urine None Seen /hpf; Bilirubin Urine Negative (Negative); Blood Urine Trace (Negative); Color Urine Yellow (Yellow); Glucose Urine UA Negative (Negative); Ketones Urine Negative (Negative); Leukocyte Esterase Ur 1+ LEU/UL (Negative); Nitrate Urine Negative (Negative); Non Pathogenic Casts 0-2; Protein Urine Negative (Negative); RBC Urine 0-2 /hpf (0-2); Specific Grav Ur 1.004 (1.001-1.035); Squamous Epithelial Cell Urine Occasional /hpf (Few); Urobilinogen Urine 0.2 mg/dL (<2.0); pH Urine 7.5 (5.0-9.0)
[2024-03-02 10:30] LABS: Alanine Aminotransferase 13 U/L (6-35); Albumin Level 4.7 g/dL (3.5-5.1); Alkaline Phosphatase 81 U/L (38-126); Anion Gap 8 mmol/L (4-12); Aspartate Amino Transferase 22 U/L (14-36); Bilirubin,Total 0.6 mg/dL (0.2-1.3); Blood Urea Nitrogen 10 mg/dL (7-17); Calcium 9.3 mg/dL (8.4-10.2); Carbon Dioxide 28 mmol/L (22-30); Chloride 101 mmol/L (98-107); Estimated CRCL calculation 104 ml/min; Estimated Glomerular Filt Rate > 60; Glucose 84 mg/dL (65-110); Potassium 3.6 mmol/L (3.4-5.0); Sodium 137 mmol/L (137-145)
--- NOTE | 2024-03-02 10:46 | ED.FEMALEGU ---
HPI - Female Genitourinary General Chief complaint: Urogenital-Female Stated complaint: left flank pain Time Seen by Provider: 03/02/24 09:48 Source: patient Mode of arrival: ambulatory Limitations: no limitations History of Present Illness HPI Narrative: patient is a 33-year-old female who presents the ED with report of abdominal pain and UTI symptoms. Patient reports she began having what she thought were UTI symptoms last week including painful urination. She notes having difficulty urinating at times, with only being able to dribble out small amounts of urine. She began drinking increased fluids and taking azo pills and symptoms improved. Symptoms then became worse again over the last couple of days and she is now having blood in her urine. She reports having some discomfort throughout her lower back, pain in her left lower abdomen. She went to an urgent care today and was sent to the ED for further evaluation. Denies previous history of kidney stones. reports intermittent nausea, denies vomiting. Denies fever. Related Data Home Medications Medication Instructions Recorded Confirmed ferrous sulfate 325 mg (65 mg 325 mg PO BID 04/16/21 04/16/21 iron) tablet (Iron (ferrous sulfate)) vit no.95-ferrous 1 tablet PO DAILY 04/16/21 04/16/21 fumarate 28 mg-folic acid 800 mcg tablet () Allergies Allergy/AdvReac Type Severity Reaction Status Date / Time acetaminophen [From Tylenol] Allergy Intermediate Blister Verified 03/02/24 09:40 amoxicillin [From Augmentin] AdvReac severe Verified 03/02/24 09:40 yeast infection clavulanic acid AdvReac severe Verified 03/02/24 09:40 [From Augmentin] yeast infection Review of Systems Review of Systems: All systems reviewed & are unremarkable except as noted in HPI. All systems reviewed & are unremarkable except as noted in HPI and below PMFSH Past Medical History Medical History Depression Obesity Surgical History Surgical History History of D&C Family History Family History Father Hypertension High cholesterol Mother Hypertension Cerebrovascular accident High cholesterol Social History Social History Smoking packs per day: 0.5 Smoking cigarettes per day: 10.0 Years smoked: 15 Smoking pack-years: 7.50 Smoking status: Current every day smoker Tobacco type: cigarettes Second hand tobacco smoke exposure: No Substance use: never Spiritual care concerns: No Exam Narrative: GENERAL: Well appearing, Obese with BMI of 30.8, non-toxic, in no acute distress. HEAD: Normocephalic, atraumatic. RESPIRATORY: Airway patent, respirations nonlabored. Clear to auscultation bilaterally, no rales, rhonchi, wheezing. CARDIOVASCULAR: Regular rate and rhythm without murmurs, rubs, or gallops. ABDOMINAL: Soft, mild tenderness palpation in suprapubic region and left lower quadrant., nondistended. Normoactive BS. No significant CVA tenderness to percussion. MUSCULOSKELETAL: Moves all extremities. No gross deformities. SKIN: Warm, dry, normal color. NEURO: A&O X3. Speech clear. PSYCHIATRIC: Appropriate mood and affect. Normal interaction. Course Vital Signs Vital signs: Vital Signs Temperature 97.2 F L 03/02/24 09:42 Pulse Rate 75 03/02/24 09:42 Respiratory Rate 14 03/02/24 09:42 Blood Pressure 122/82 03/02/24 09:42 Pulse Oximetry 100 03/02/24 09:42 Temperature 97.2 F L 03/02/24 09:42 Pulse Rate 62 03/02/24 11:19 Respiratory Rate 17 03/02/24 11:19 Blood Pressure 104/64 03/02/24 10:15 Pulse Oximetry 100 03/02/24 11:19 MDM - Female Genitourinary MDM Narrative Medical decision making narrative: Iliana
[2024-03-02] MEDS: traMADol HCL (*CRX) 50 MG TABLET 25 MG PO (10:57)
[2024-03-02] MEDS: SODIUM CHLORIDE 0.9% IV 1,000 ML 999 ML IV CONT (10:59)
[2024-03-02 11:19] VITALS: PULSE 62; RESP 17; O2SAT 100
[2024-03-02 11:46] VITALS: BP 118/66; PULSE 59; RESP 20; O2SAT 99
[2024-03-02 12:19] VITALS: PULSE 65; RESP 16; O2SAT 99
[2024-03-02] MEDS: CEPHALEXIN 500 MG CAPSULE PO (12:33)
== END 2024-03-02 12:39 | disposition home or self-care (01) ==
PROVIDERS: Emergency Provider Physician Assistant; PCP Internal Medicine
DX: N30.00 Acute cystitis without hematuria (principal); E66.9 Obesity, unspecified; Z68.30 Body mass index [BMI] 30.0-30.9, adult; F17.210 Nicotine dependence, cigarettes, uncomplicated
CPT/HCPCS: 36415; 74176; 80053; 81001; 85025; 87086; 96360; 99284; A9270; J7030

== ENCOUNTER 2024-08-02 09:41 | Outpatient (CLI) | payer BC, SELFPAY ==
--- NOTE | ~2024-08-02 | US_ITS ---
US breast RT limited 08/02/2024 10:00 Indication: Follow-up right breast mass Procedure: High-resolution Limited ultrasound of the right breast Comparison: 12/28/2023 Findings: At 9:00, 9 cm from the nipple there is an oval hypoechoic mass with parallel orientation, c entral echogenic hilum measuring 5 mm, compatible with benign intramammary lymph node. There are no s uspicious masses to suggest malignancy. Impression: 1: No sonographic evidence for malignancy in the right breast. Routine yearly screening mammogram and regular clinical breast examination are recommended. BI-RADS CATEGORY 2 - BENIGN FINDINGS Reviewed, dictated and finalized at location B. Impression: 1: No sonographic evidence for malignancy in the right breast. Routine yearly screening mammogram and regular clinical breast examination are recommended. BI-RADS CATEGORY 2 - BENIGN FINDINGS
== END 2024-08-02 09:42 | disposition home or self-care (01) ==
PROVIDERS: PCP Internal Medicine; Visit Provider Nurse Practitioner
DX: N63.15 Unspecified lump in the right breast, overlapping quadrants (principal)
CPT/HCPCS: 76642

== ENCOUNTER 2024-10-17 10:02 | Emergency (ER) | payer BC, SELFPAY ==
[2024-10-17 10:16] VITALS: BP 110/73; PULSE 83; RESP 16; TEMP 37.2; O2SAT 100
--- NOTE | 2024-10-17 10:30 | ED.URI ---
HPI - URI/Sore Throat General Chief Complaint: Upper Respiratory Infection Stated Complaint: Sinus Infection symptoms Time Seen by Provider: 10/17/24 10:30 Source: patient, RN notes reviewed and old records reviewed Mode of arrival: ambulatory Limitations: no limitations History of Present Illness HPI Narrative: 34-year-old female presents Express Care with complaints of mild cough, sinus drainage with green sinus drainage,with sinus pressure and frontal headache. Patient reports that she initially had some sore throat last Wednesday and has progressed to the sinus pressures headaches and congestion. Patient reports that she did have fever up to 100.1F on Wednesday. Patient reports that she has been taking Flonase nasal spray and has been taking Advil cold and sinus with no improvement in her symptoms. MD elicited complaint: fever (low grade on Wednesday), cough, rhinorrhea, nasal congestion, sinus pain and other (frontal headaches) Onset (ago): week(s) (1 week) Consistency: progressively worsening Severity: moderate Description of mucous: green (nasal) Able to tolerate fluids by mouth: Yes Treatments prior to arrival: other (Advil cold and flu, flonase) Related Data Allergies Allergy/AdvReac Type Severity Reaction Status Date / Time acetaminophen (From Tylenol) Allergy Intermediate Blister Verified 10/17/24 10:25 amoxicillin (From Augmentin) AdvReac severe Verified 10/17/24 10:25 yeast infection clavulanic acid (From AdvReac severe Verified 10/17/24 10:25 Augmentin) yeast infection Review of Systems Review of Systems: CONSTITUTIONAL: Reports malaise, previous chills, sweats, and fever. EYES: Denies visual changes, redness, or discharge. ENT: Reports rhinorrhea, congestion, sinus pain, no otalgia and sore throat. CARDIOVASCULAR: Denies chest pain, palpitations, or edema. RESPIRATORY: Reports occasional cough.? Denies dyspnea. GASTROINTESTINAL: Denies abdominal pain, nausea, vomiting, diarrhea SKIN: Denies rash or itching. MUSCULOSKELETAL: Denies myalgia. NEUROLOGIC: Frontal headache. All systems reviewed & are unremarkable except as noted in HPI and below PMFSH Past Medical History Medical History (Updated 10/18/24 @ 10:05 by Darleen Ramos NP) Obesity Depression Surgical History Surgical History (Updated 10/18/24 @ 09:59 by Darleen Ramos NP) H/O hemorrhoidectomy H/O section History of D&C Family History Family History Father Hypertension High cholesterol Mother Hypertension Cerebrovascular accident High cholesterol Social History Social History (Updated 10/18/24 @ 10:00 by Darleen Ramos NP) Smoking packs per day: 0.5 Smoking cigarettes per day: 10.0 Years smoked: 15 Smoking pack-years: 7.50 Smoking status: Current every day smoker Tobacco type: cigarettes and e-cigarettes/vaping Second hand tobacco smoke exposure: No Additional smoking assessment comments: former cigarette smoker now vapes Substance use: never Spiritual care concerns: No Comments At time of signature, agree with nursing past medical, surgical, social and family history. There is no relevant family history pertinent to the presenting complaint Exam Narrative: GENERAL: Well-appearing, well-nourished, and in no acute distress. HEAD: Normocephalic EYES: PERRLA, conjunctivae clear ENT: Nares clear, turbinates edematous and erythematous, green discharge, sinus pressure and frontal headache Mucous membranes moist. TM pearly gonzalez with dull light reflex bilaterally; no tragal tenderness. Oropharynx erythematous without lesions. Tonsils not enlarged and without exudate, no drooling, no hoarseness, no trismus, uvula midline.post nasal drainage NECK: Supple. No lymphadenopathy CHEST: Clear to auscultation, breath sounds equal. No wheezing, rhonchi, rales, or stridor. No respiratory distress, speaks in full sentences.occasional dry cough, SAO2 100% on room air HEART: Regular rate and rhythm. No murmur heard. SKIN: Warm, dry, no rash. NEURO: Alert and oriented x3. PSYCH: Normal mood and affect Course Course Emergency Course: Patient is aware of diagnosis, understands and agrees to treatment plan.? Anticipatory guidance given.? Patient agrees to follow-up as directed and is aware of reasons to seek care at the emergency department. Portions of this record may have been created with voice recognition software Level of Care: Express Care Visit Vital Signs Vital signs: Vital Signs Temperature 37.2 C 10/17/24 10:16 Pulse Rate 83 10/17/24 10:16 Respiratory Rate 16 10/17/24 10:16 Blood Pressure 110/73 10/17/24 10:16 Pulse Oximetry 100 10/17/24 10:16 Temperature 37.2 C 10/17/24 10:16 Pulse Rate 83 10/17/24 10:16 Respiratory Rate 16 10/17/24 10:16 Blood Pressure 110/73 10/17/24 10:16 Pulse Oximetry 100 10/17/24 10:16 Reviewed MDM - URI/Sore Throat MDM Narrative Medical decision making narrative: Differential diagnosis considered: [place] virus, strep pharyngitis, allergic rhinitis, upper respiratory tract infection, sinusitis, rhinosinusitis, nasopharyngitis. viral pharyngitis, otitis media, otitis externa, pneumonia, bronchitis, viral cough syndrome, viral syndrome, and influenza.? Exam findings show no acute concerns or changes; patient is non-toxic appearing and is in no distress.? Patient is appropriate for outpatient treatment and follow-up. Differential Diagnosis Differential diagnosis: Likely upper respiratory infection, sinusitis and viral infection Medical Records Attestation: I reviewed the patient's medical records. Lab Data Attestation: I reviewed the patient's lab results. Critical Care Time Critical Care Time Critical Care Time: No Discharge Plan Discharge Clinical Impression: Sinusitis Qualifiers: Sinusitis location: pansinusitis Chronicity: acute Recurrence: not specified as recurrent Qualified Code(s): J01.40 - Acute pansinusitis, unspecified Patient Disposition: Home Condition: Stable Instructions: Antibiotic Form, Sinusitis (ED) Additional Instructions: Increase fluids especially juices and water [id number] cough and cold medicine of your choice for your symptoms Zyrtec Claritin or Duyen daily may use plain Sudafed in a.m. ibuprofen for fever pain heat to the face 20-30 minutes 4-6 times a day for pain Salt water gargles, throat lozenges or throat sprays as desired Antibiotic as directed--finished the medication Patient report she can take Augmentin if has Diflucan in case of yeast infection denies allergy If your symptoms persist, change or worsen significantly before you can contact your personal physician then please, without delay, go to the emergency department for further evaluation. Follow-up with PCP in 7-10 days or sooner if needed Diflucan as prescribed Patient Language: Serbian Prescriptions: New amoxicillin-pot clavulanate 875-125 mg tablet 1 tablet PO Q12H 10 Days Qty: 20 0RF Rx Instructions: take with food recommend taking probiotic or eating Activia yogurt while on this medication fluconazole 150 mg tablet 150 mg PO ONCE Qty: 2 0RF Rx Instructions: as a single dose and may repeat in 72 hours as needed Follow-up/Referrals: PHYSICIAN,ABALONE DIVER [Primary Care Provider] - Stand Alone Forms: Work/School Release IP Time of Disposition: 10:45 Quality [place] Coma Scale Eyes: Open Verbal: Oriented and Alert Motor: Follows Commands [place] Coma Total Score: 15
== END 2024-10-17 11:00 | disposition home or self-care (01) ==
PROVIDERS: Emergency Provider Registered Nurse
DX: J01.40 Acute pansinusitis, unspecified (principal); F17.210 Nicotine dependence, cigarettes, uncomplicated
CPT/HCPCS: 99213; G0463